=== PATIENT | male | born 1930 | race Caucasian/White ===

== ENCOUNTER 2017-02-12 00:13 | Emergency (ER) | payer BC, MEDICARE, OTHER ==
[~2017-02-12] VITALS: Ht 152.4 cm; Wt 46.3 kg
[2017-02-12] MEDS ORDERED: IOHEXOL 300 MG/ML 50 ML VIAL. ONE (01:07)
[2017-02-12] MEDS ORDERED: IOHEXOL 240 MG/ML 50ML VIAL. ONE (01:10)
[2017-02-12 01:34] LABS: BASO % 1 % (0-3); EOS # 0.1 x10^3/uL (0.0-0.7); EOS % 2 % (0-3); HEMATOCRIT 41.9 % (39.0-53.0); HEMOGLOBIN 14.7 g/dL (13.0-17.5); LYMPH % 21 % (24-48); MEAN CORPUSCULAR HEMOGLOBIN 33 pg (25-35); MEAN CORPUSCULAR HGB CONC 35 g/dL (31-37); MEAN CORPUSCULAR VOLUME 95 fL (79-100); MONO # 0.4 x10^3/uL (0.0-1.1); MONO % 7 % (0-9); NEUT # 3.3 x10^3uL (1.8-7.7); NEUT % 69 % (31-73); PLATELET COUNT 133 x10^3/uL (140-400); RED BLOOD COUNT 4.41 x10^6/uL (4.30-5.70); RED CELL DISTRIBUTION WIDTH 13.3 % (11.5-14.5); WHITE BLOOD COUNT 4.8 x10^3/uL (4.0-11.0)
[2017-02-12 01:42] LABS: ALBUMIN 3.8 g/dL (3.4-5.0); ALBUMIN/GLOBULIN RATIO 1.2 (1.0-1.7); CALCIUM 9.1 mg/dL (8.5-10.1); CREATININE 0.7 mg/dL (0.7-1.3); GFR 106.7; POTASSIUM 3.6 mmol/L (3.5-5.1); TOTAL BILIRUBIN 0.6 mg/dL (0.2-1.0); TOTAL PROTEIN 7.1 g/dL (6.4-8.2)
--- NOTE | 2017-02-12 01:55 | PHYS DOC ---
General Chief Complaint: ABDOMINAL PAIN Stated Complaint: SWELLING IN GROIN Time Seen by MD: 00:47 Source: patient, EMS, old records Exam Limitations: other (dementia) Problems: History of Present Illness Initial Comments Patient is an 86-year-old male diverted from the NH and brought by EMS with right lower quadrant/right inguinal pain. EMS reports that the patient has a right inguinal hernia which became acutely painful today. Patient states that he developed a hernia from lifting a heavy item in the past. He says it has grown larger and today had sudden onset acute severe pain at his right inguinal hernia. EMS reports that the patient denied any pain upon their arrival however he did insist upon transfer to a hospital for evaluation. Patient remains pain free upon ED arrival. Patient does have history of dementia and is a poor historian. Records are obtained from the NH and much of the history is obtained from those records. ED vitals: 97.7, 55, 20, 141/65, 96% room air CT evaluation will be undertaken to rule out intestinal obstruction, incarceration, or other abnormality. Timing/Duration: unsure Severity: severe Modifying Factors: improves with other Associated Symptoms: other Allergies: Coded Allergies: No Known Drug Allergies (Unverified , 02/12/17) Past Medical History Medical History: other (alcoholism, arthritis, hyperlipidemia, hypertension, gout, BPH, hard of hearing, dementia) Surgical History: other (colostomy resultant from a fall injury 30 years ago) Social History Smoker: quit greater than 1 year Alcohol: heavy (history of alcoholism he states he drinks nonalcoholic beers currently) Review of Systems All Other Systems: Reviewed and Negative (review of systems as per history of present illness, patient is a poor historian) Physical Exam General Appearance: no apparent distress, thin Ear, Nose, Throat: normal ENT inspection ([place]) Neck: non-tender, supple Respiratory: normal breath sounds, no respiratory distress Gastrointestinal: normal bowel sounds, non tender, soft, other (large reducible right inguinal hernia, colostomy noted) Back: no CVA tenderness, no vertebral tenderness Extremities: non-tender, normal inspection Neurologic/Psychiatric: alert (confused at times, no lateralizing deficits noted) Orders, Labs, Meds 0205: Time in department 1 hour 53 minutes, patient has not yet gone to CT. Patient will have prolonged ED course due to lab and radiology delay. PATIENT: BRIAN SALTER ACCOUNT: [id number] : 1930 LOCATION: ER AGE: 86 SEX: M EXAM STATUS: REG ER ORD. PHYSICIAN: CULLEN LONG DO REASON: RLQ/R inguinal hernia pain PROCEDURE: CT ABD PELV W/ORAL&IV CONTRAST CT abdomen and pelvis with contrast HISTORY: Right lower quadrant abdominal pain, right inguinal hernia. TECHNIQUE: Helical CT imaging of the abdomen and pelvis with oral contrast and 75 mL Omnipaque 300 intravenous contrast. Abdomen findings: Chronic lumbar spine mild compression deformities. 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 Lung bases unremarkable. Mild bilateral hydronephrosis and ureteral distention. There could be pancreatic divisum. Mild biliary ductal dilation. Gallstones. Liver, spleen and adrenal glands are unremarkable. Colectomy with right lower quadrant ileostomy. Right inguinal hernia containing a segment of small bowel without obstruction or inflammatory change. Aortoiliac artery calcified plaque. No abdominal fluid or adenopathy. Pelvis findings: Right internal hernia containing a small bowel loop and a mild amount of fluid. Distal ureters are dilated and the bladder is moderately distended associated with enlargement and exophytic nodule at the base of the prostate gland protruding into the lumen of the bladder although urothelial nodules of the bladder itself cannot be excluded. Rectal resection. Bones unremarkable. IMPRESSION: 1. Right inguinal hernia containing a small bowel loop. No small bowel obstruction or inflammatory changes within the hernia sac. 2. Mild bilateral hydronephrosis and moderate urinary bladder distention associated with enlargement of the prostate gland as well as exophytic nodules at the bladder trigone which could represent prostate nodules from the base of the prostate protruding into the bladder versus urothelial neoplastic nodules at the bladder trigone. 3. Mild biliary ductal dilation. Gallstones. Exposure: One or more of the following individualized dose reduction techniques were utilized for this examination: 1. Automated exposure control 2. Adjustment of the mA and/or kV according to patient size 3. Use of iterative reconstruction technique Electronically signed by: Mireille Bob MD (02/12/2017 2:56 AM) [facility] DICTATED AND SIGNED BY: MIREILLE BOB MD DATE: 02/12/17 0247 CC: MICAELA PETERSON; CULLEN LONG DO ~ Na 129 plt 133, UA unremarkable, labs reassuring I discussed findings with pt and his daughter in law who has remained with pt thru his ED course. I discussed [facility] not only [facility] for outpatient elective herniorrhaphy but also further prostate evaluation for what appears to be prostate cancer. Pt is angry he cannot get hernia repair tonight, I explained nonemergent findings and [facility] procedure for referrals thru their processes. At times he expresses understanding then gets angry again exhibiting dementia. Pt daughter in law has tried to explain these things to pt as well and she has a good understanding of how to follow up with [facility] and states she will assist him. Pt remained pain free thru ED course and d/c home with daughter in law. Departure Time of Disposition: 03:30 Disposition: 01 HOME, SELF-CARE Diagnosis: Large R reducible inguinal hernia, hyponatremia mi Condition: STABLE Patient Instructions: Hyponatremia, [id number], Inguinal Hernia, Adult Additional Instructions: Please review the patient education materials given to you by the ED staff. Aggressive hydration with Gatorade or water. No straining on the toilet, no lifting items heavier than 10 pounds, try to avoid coughing and sneezing for optimal symptom control and to prevent hernia from growing larger. Prescription: [place] 5 mg quantity 5 Take medication with food and stool softeners to avoid adverse effects. Follow-up with your doctor Sunday for recheck and to discuss further evaluation of his prostate and to obtain a general surgery outpatient referral to discuss hernia repair. Take the disc of the images from tonight studies with you to that appointment. Return to ED with new or changing symptoms. CULLEN LONG DO Feb 12, 2017 01:55
[2017-02-12] MEDS ORDERED: IOHEXOL 300 MG/ML 75 ML VIAL. IV ONE (02:00)
[2017-02-12] MEDS ORDERED: IOHEXOL 240 MG/ML 50ML VIAL. PO ONE (02:00)
[2017-02-12] MEDS ORDERED: CONTRAST GIVEN MC PRN (02:00)
[2017-02-12 02:28] LABS: CLARITY,URINE CLEAR; COLOR,URINE YELLOW
[2017-02-12 02:29] LABS: BACTERIA,URINE 0 /HPF (0-FEW); BILIRUBIN,URINE NEG (NEG); GLUCOSE,URINE NEG (NEG); NITRITE,URINE NEG (NEG); RBC,URINE RARE /HPF (0-2); SQUAMOUS EPITHELIAL CELL,UR OCC /LPF; UROBILINOGEN,URINE 0.2 mg/dL (0.2 mg/dL); WBC,URINE RARE /HPF (0-4)
--- NOTE | 2017-02-12 03:00 | RAD ---
CT abdomen and pelvis with contrast HISTORY: Right lower quadrant abdominal pain, right inguinal hernia. TECHNIQUE: Helical CT imaging of the abdomen and pelvis with oral contrast and 75 mL Omnipaque 300 intravenous contrast. Abdomen findings: Chronic lumbar spine mild compression deformities. 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 Lung bases unremarkable. Mild bilateral hydronephrosis and ureteral distention. There could be pancreatic divisum. Mild biliary ductal dilation. Gallstones. Liver, spleen and adrenal glands are unremarkable. Colectomy with right lower quadrant ileostomy. Right inguinal hernia containing a segment of small bowel without obstruction or inflammatory change. Aortoiliac artery calcified plaque. No abdominal fluid or adenopathy. Pelvis findings: Right internal hernia containing a small bowel loop and a mild amount of fluid. Distal ureters are dilated and the bladder is moderately distended associated with enlargement and exophytic nodule at the base of the prostate gland protruding into the lumen of the bladder although urothelial nodules of the bladder itself cannot be excluded. Rectal resection. Bones unremarkable. IMPRESSION: 1. Right inguinal hernia containing a small bowel loop. No small bowel obstruction or inflammatory changes within the hernia sac. 2. Mild bilateral hydronephrosis and moderate urinary bladder distention associated with enlargement of the prostate gland as well as exophytic nodules at the bladder trigone which could represent prostate nodules from the base of the prostate protruding into the bladder versus urothelial neoplastic nodules at the bladder trigone. 3. Mild biliary ductal dilation. Gallstones. Exposure: One or more of the following individualized dose reduction techniques were utilized for this examination: 1. Automated exposure control 2. Adjustment of the mA and/or kV according to patient size 3. Use of iterative reconstruction technique Electronically signed by: Zeke Bob MD (02/12/2017 2:56 AM) [facility]
[2017-02-12] MEDS ORDERED: HYDR-971 PO (03:29)
[2017-02-12 03:50] VITALS: BP 143/76
== END 2017-02-12 03:56 | disposition home or self-care (01) ==
LOC: ER 00:13
DX: K40.90 Unilateral inguinal hernia, without obstruction or gangrene, not specified as recurrent (principal); E87.1 Hypo-osmolality and hyponatremia; E78.5 Hyperlipidemia, unspecified; F03.90 Unspecified dementia, unspecified severity, without behavioral disturbance, psychotic disturbance, mood disturbance, and anxiety; I10 Essential (primary) hypertension; M10.9 Gout, unspecified; F10.20 Alcohol dependence, uncomplicated; Z87.891 Personal history of nicotine dependence
CPT/HCPCS: 36415; 74177; 80053; 81001; 85025; 99285; Q9966; Q9967